=== PATIENT | female | born 2000 | race African-American/Black ===

== ENCOUNTER 2018-06-05 21:22 | Emergency (ER) | payer BC ==
[2018-06-05 21:36] VITALS: TEMP 98.2; BMI 39.1
[2018-06-05] MEDS ORDERED: predniSONE 20 MG TABLET (UD) PO ONE (21:43)
[2018-06-05] MEDS ORDERED: ALBUTEROL SO4 2.5/IPRATROPIUM 0.5 INH SOL 3 ML VIAL.NEB. NEB ONE (21:43)
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
[2018-06-05] MEDS: ALBUTEROL SO4 2.5/IPRATROPIUM 0.5 INH SOL 3 ML VIAL.NEB. NEB SCH ×2 (21:46→22:00)
[2018-06-05] MEDS ORDERED: predniSONE 20 MG TABLET (UD) ONE (21:47)
[2018-06-05 23:21] VITALS: BP 126/66; PULSE 86
== END 2018-06-05 23:22 | disposition home or self-care (01) ==
LOC: JER 21:22
PROC: 3E0F7GC Introduction of Other Therapeutic Substance into Respiratory Tract, Via Natural or Artificial Opening (ICD-10-PCS; principal; 2018-06-05)
DX: J45.21 Mild intermittent asthma with (acute) exacerbation (principal)
CPT/HCPCS: 99282-25